=== PATIENT | female | born 1990 | race Caucasian/White ===

== ENCOUNTER 2020-02-07 03:35 | Emergency (ER) | payer MEDICAID ==
[~2020-02-07] VITALS: Ht 152.4 cm; Wt 80.3 kg
[2020-02-07 03:41] VITALS: BP 135/91
--- NOTE | 2020-02-07 03:49 | NUR ---
w/c assist to bed 04
--- NOTE | 2020-02-07 03:59 | NUR ---
URINE DIP AND PREG DONE
[2020-02-07] MEDS ORDERED: ACETAMINOPHEN EXTRA STRENGTH 500 MG TAB PO ONE (04:05)
--- NOTE | 2020-02-07 04:15 | NUR ---
PT 10 WEEKS , STARTED SPOTTING ON THURSDAY WITH NO CRAMPING OR PAIN. WOKE UP AROUND 11PM WITH SEVERE PELVIC CRAMPING RADIATING INTO LOWER BACK. UPON ARRIVAL TO ER SHE STARTED HAVING HEAVY BLEEDING, PASSING LARGE CLOTS, AND 10/10 PAIN. 3 PARA 2, PRIOR PREGNANCIES FULL TERM AND NO ISSUES. CURRENTLY AFEBRILE, NO N/V/D. UNABLE TO OBTAIN REGULAR NORMAL HEART TONES WITH DOPPLER. READINGS WERE JUMPING FROM 198 DOWN TO 83. BED IN LOWEST POSITION AND SIDE RAIL UP X 1. NKA NO HX
--- NOTE | 2020-02-07 04:15 | NUR ---
IV LINE ESTABLISHED, LABS COLLECTED AND TAKEN TO LAB
--- NOTE | 2020-02-07 04:29 | NUR ---
CHANGED PT'S PAD, NO CLOTS, PAD SOAKED AFTER APPROX 25-30 MINS
[2020-02-07 04:33] LABS: HEMATOCRIT 31.3 % (36-48); HEMOGLOBIN 9.3 g/dL (12.0-16.0); MEAN CORPUSCULAR HEMOGLOBIN 19 pg (27-31); MEAN CORPUSCULAR HGB CONC 30 g/dL (33-37); MEAN CORPUSCULAR VOLUME 63.2 fL (80-94); PLATELET COUNT (AUTO) 278 K/uL (140-450); RED BLOOD CELL COUNT(AUTO) 4.95 MIL/uL (4.20-5.40); RED CELL DISTRIBUTION WIDTH 21.4 % (11.6-13.7); WHITE BLOOD COUNT (AUTO) 10.4 K/uL (4.8-10.8)
--- NOTE | 2020-02-07 04:45 | NUR ---
ULTRASOUND AT BEDSIDE
--- NOTE | 2020-02-07 04:46 | NUR ---
Adolfo rowland in [facility] - 02/07/20 at 0446 by [facility] at bedside.
[2020-02-07 05:05] LABS: APPEARANCE,URINE BLOODY (CLEAR); BILIRUBIN,URINE NEGATIVE (NEGATIVE); BLOOD, URINE 3+ (NEGATIVE); COLOR,URINE RED (YELLOW); LEUKOCYTE ESTERASE ,URINE NEGATIVE (NEGATIVE); LYMPHOCYTES % (MANUAL) 13 % (20-46); MONOCYTES % (MANUAL) 7 % (5-12); NITRITE, URINE POSITIVE (NEGATIVE); PH,URINE 7.5 (5.0-9.0); UGLUCOSE TRACE (NEGATIVE)
--- NOTE | 2020-02-07 05:06 | NUR ---
MD LAWRENCE AT BEDSIDE SPEAKING WITH PT AND HER .
--- NOTE | 2020-02-07 05:07 | NUR ---
Adolfo rowland in ED - 02/07/20 at 0520 by [email or web address] PT CONTINUES TO HAVE 03/10 PAIN, MD LAWRENCE AWARE
[2020-02-07] MEDS ORDERED: MORPHINE SULFATE 4 MG/ML SYR IVP ONE (05:10)
[2020-02-07 05:21] LABS: RBC,URINE >100 /HPF (0-5)
--- NOTE | 2020-02-07 05:26 | NUR ---
PT RESTING MORE COMFORTABLY AFTER BEING MEDICATED WITH MORPHINE, RATES PAIN 5/10 AT THIS TIME.
--- NOTE | 2020-02-07 05:57 | NUR ---
FRAN LAWRENCE AT BEDSIDE FOR MEDICAL RE EVALUATION.
[2020-02-07 06:11] VITALS: BP 106/50
== END 2020-02-07 06:11 | disposition home or self-care (01) ==
LOC: MED 03:35
DX: O23.41 Unspecified infection of urinary tract in pregnancy, first trimester (principal); O20.0 Threatened abortion; Z3A.10 10 weeks gestation of pregnancy; Z98.890 Other specified postprocedural states
CPT/HCPCS: 36415; 76817; 81001; 81025; 84702; 85025; 86900; 86901; 87086; 96374; 99284; J2270; Q0092

== ENCOUNTER 2020-02-12 12:00 | Emergency (ER) | payer MEDICAID ==
[~2020-02-12] VITALS: Ht 152.4 cm; Wt 79.4 kg
[2020-02-12 12:00] VITALS: BP 126/70
--- NOTE | 2020-02-12 12:00 | NUR ---
PT W/C ASSISTED TO BED 4.
[2020-02-12] MEDS ORDERED: KETOROLAC 30 MG/ML VIAL IVP ONE (12:05)
[2020-02-12] MEDS ORDERED: NACL 0.9% 1,000 ML IV ONE (12:05)
--- NOTE | 2020-02-12 12:10 | NUR ---
A 30 yo female with 11 weeks of pregnancyt c/o intermittent cramping lower abdominal pain since 02/07/2020, which was worsened yesterday. Pt reports she had vaginal bleeding on 02/07/2020 and seen by our ER dr on the same day, pt was dx with threatened miscarriage and UTI. Denies bleeding at this time, no trauma or injury to abdomen. . AAOX4, HR EVEN AND REGULAR; PT DENIES ANY FEVER, CP, SOB, OR COUGH AT THIS TIME; PATIENT STATES PAIN OF 10/10 AT THIS TIME; VSS; PATIENT POSITIONED FOR COMFORT; HOB ELEVATED; BEDRAILS UP X2; BED DOWN. ER MD MADE AWARE OF PT STATUS.
[2020-02-12 12:23] LABS: HEMATOCRIT 34.6 % (36-48); HEMOGLOBIN 10.4 g/dL (12.0-16.0); MEAN CORPUSCULAR HEMOGLOBIN 20 pg (27-31); MEAN CORPUSCULAR HGB CONC 30 g/dL (33-37); MEAN CORPUSCULAR VOLUME 67.3 fL (80-94); PLATELET COUNT (AUTO) 267 K/uL (140-450); RED BLOOD CELL COUNT(AUTO) 5.14 MIL/uL (4.20-5.40); RED CELL DISTRIBUTION WIDTH 23.7 % (11.6-13.7); WHITE BLOOD COUNT (AUTO) 19.1 K/uL (4.8-10.8)
--- NOTE | 2020-02-12 12:23 | NUR ---
Dr. Haque is evaluating the patient at bedside.
[2020-02-12 12:37] LABS: ANION GAP 16.7 (8-16); CREATININE 0.7 mg/dL (0.6-1.3); POTASSIUM 3.7 mmol/L (3.5-5.1)
[2020-02-12 12:45] LABS: BASOPHILS % (MANUAL) 0 % (0-2); EOSINOPHILS % (MANUAL) 0 % (0-4); LYMPHOCYTES % (MANUAL) 7 % (20-46); MONOCYTES % (MANUAL) 7 % (5-12)
--- NOTE | 2020-02-12 13:10 | NUR ---
UA collected and sent to lab.
[2020-02-12 13:19] LABS: APPEARANCE,URINE CLEAR (CLEAR); BILIRUBIN,URINE NEGATIVE (NEGATIVE); BLOOD, URINE 3+ (NEGATIVE); COLOR,URINE YELLOW (YELLOW); LEUKOCYTE ESTERASE ,URINE NEGATIVE (NEGATIVE); NITRITE, URINE NEGATIVE (NEGATIVE); UGLUCOSE NEGATIVE (NEGATIVE)
[2020-02-12] MEDS ORDERED: MORPHINE SULFATE 2 MG/ML SYR IVP ONE (13:30)
[2020-02-12 13:36] LABS: RBC,URINE 11-20 (MOD) /HPF (0-5); WBC,URINE 0-5 /HPF (0-5)
[2020-02-12 14:29] VITALS: BP 123/79
--- NOTE | 2020-02-12 14:29 | NUR ---
Patient discharged with v/s stable. Written and verbal after care instructions given and explained. Patient alert, oriented and verbalized understanding of instructions. Ambulatory with steady gait. All questions addressed prior to discharge. ID band removed. Patient advised to follow up with PMD. Rx of Motrin and Zofran given. Patient educated on indication of medication including possible reaction and side effects. Opportunity to ask questions provided and answered.
== END 2020-02-12 14:29 | disposition home or self-care (01) ==
LOC: MED 12:00
DX: O20.0 Threatened abortion (principal); Z3A.11 11 weeks gestation of pregnancy; D64.9 Anemia, unspecified
CPT/HCPCS: 36415; 76801; 80048; 81001; 84702; 85025; 86900; 86901; 96361; 96374; 96375; 99284; J1885; J2270; J7030; Q0092